=== PATIENT | male | born 1960 | race Caucasian/White ===

== ENCOUNTER 2019-02-18 22:46 | Emergency (ER) | payer MEDICAID, SELFPAY ==
[~2019-02-18] VITALS: Ht 157.5 cm; Wt 90.9 kg
[~2019-02-18 22:46] MED LIST: CYCL10 PO; IBUP-2071 PO
[2019-02-18 23:26] VITALS: BP 143/88
== END 2019-02-19 00:20 | disposition home or self-care (01) ==
LOC: EMS 22:47
DX: R05 Cough (principal); R06.02 Shortness of breath; R06.00 Dyspnea, unspecified; Z77.098 Contact with and (suspected) exposure to other hazardous, chiefly nonmedicinal, chemicals

== ENCOUNTER 2019-08-03 15:54 | Inpatient (IN) | payer MEDICAID ==
[~2019-08-03] VITALS: Ht 157.5 cm; Wt 98.0 kg
[2019-08-03 16:25] LABS: BASOPHILS % (AUTO) 0.8 % (0.0-2.0); EOSINOPHILS % (AUTO) 1.7 % (1.0-6.0); HEMATOCRIT 44.6 % (41-53); HEMOGLOBIN 14.9 g/dL (13.5-17.5); LYMPHOCYTES # (AUTO) 1.9 K/uL (1.0-4.8); LYMPHOCYTES % (AUTO) 22.2 % (22.0-44.0); MEAN CORPUSCULAR HEMOGLOBIN 27.8 pg (26.0-34.0); MEAN CORPUSCULAR HGB CONC 33.3 G/dL (31.0-37.0); MEAN CORPUSCULAR VOLUME 84 fL (80-100); MONOCYTES # (AUTO) 0.6 K/uL (0.1-1.0); MONOCYTES % (AUTO) 6.7 % (2.0-9.0); NEUTROPHILS # (AUTO) 5.7 K/uL (1.8-7.7); NEUTROPHILS % (AUTO) 68.6 % (40.0-70.0); PLATELET COUNT (AUTO) 284 K/uL (150-450); RED BLOOD CELL COUNT(AUTO) 5.34 MIL/uL (4.50-5.90); RED CELL DISTRIBUTION WIDTH 13.4 % (11.5-14.5)
[2019-08-03 16:34] LABS: CREATININE 1.29 mg/dL (0.60-1.30); POTASSIUM 3.8 mmol/L (3.5-5.1)
[2019-08-03 16:40] LABS: BILIRUBIN,TOTAL 0.2 mg/dL (0.1-1.0); TOTAL PROTEIN, SERUM 8.5 g/dL (6.4-8.2)
[2019-08-03 17:30] LABS: APPEARANCE,URINE CLEAR (CLEAR); BILIRUBIN,URINE NEGATIVE (NEGATIVE); GLUCOSE, URINE (UA) NEGATIVE (NEGATIVE); KETONES,URINE NEGATIVE (NEGATIVE); LEUKOCYTE ESTERASE ,URINE SMALL (NEGATIVE); NITRATE,URINE NEGATIVE (NEGATIVE); OCCULT BLOOD,URINE MODERATE (NEGATIVE); PROTEIN,URINE NEGATIVE (NEGATIVE); UROBILINOGEN,URINE 0.2 mg/dL (<=1.0)
[2019-08-03 17:42] LABS: BACTERIA,URINE Few /HPF (None Seen); SQUAMOUS EPITHELIAL CELL,UR Few /LPF (None Seen)
[2019-08-03] MEDS ORDERED: ACETAMINOPHEN 325 MG TABLET PO PRN (20:15)
[2019-08-03] MEDS ORDERED: 0.9% SODIUM CHLORIDE 10 ML SYRINGE IVP PRN (20:15)
[2019-08-03] MEDS ORDERED: ONDANSETRON HCL 4 MG/2 ML VIAL IVP PRN (20:15)
[2019-08-03 21:05] VITALS: BP 131/94
[2019-08-04] VITALS (7 sets, daily range): BP systolic 116–138; BP diastolic 76–89
[2019-08-04 07:52] LABS: BASOPHILS % (AUTO) 0.5 % (0.0-2.0); EOSINOPHILS % (AUTO) 2.8 % (1.0-6.0); HEMATOCRIT 44.3 % (41-53); HEMOGLOBIN 14.9 g/dL (13.5-17.5); LYMPHOCYTES # (AUTO) 1.7 K/uL (1.0-4.8); LYMPHOCYTES % (AUTO) 19.7 % (22.0-44.0); MEAN CORPUSCULAR HEMOGLOBIN 28.2 pg (26.0-34.0); MEAN CORPUSCULAR HGB CONC 33.6 G/dL (31.0-37.0); MEAN CORPUSCULAR VOLUME 84 fL (80-100); MONOCYTES # (AUTO) 0.8 K/uL (0.1-1.0); MONOCYTES % (AUTO) 9.2 % (2.0-9.0); NEUTROPHILS # (AUTO) 5.9 K/uL (1.8-7.7); NEUTROPHILS % (AUTO) 67.8 % (40.0-70.0); PLATELET COUNT (AUTO) 286 K/uL (150-450); RED BLOOD CELL COUNT(AUTO) 5.28 MIL/uL (4.50-5.90); RED CELL DISTRIBUTION WIDTH 13.3 % (11.5-14.5)
[2019-08-04 08:10] LABS: ALANINE AMINOTRANSFERASE 22 U/L (12-78); ALBUMIN 3.5 g/dL (3.4-5.0); ALKALINE PHOSPHATASE 109 U/L (46-116); ANION GAP 9 mmol/L (8-16); ASPARTATE AMINOTRANSFERASE 18 U/L (15-37); BILIRUBIN,TOTAL 0.6 mg/dL (0.1-1.0); CALCIUM, TOTAL 8.4 mg/dL (8.8-10.5); CARBON DIOXIDE 27 mmol/L (22-29); CHLORIDE 104 mmol/L (98-107); CREATININE 1.15 mg/dL (0.60-1.30); GLOMERULAR FILTR. RATE CALC > 60 mL/min (>60); GLUCOSE,RANDOM 96 mg/dL (70-110); POTASSIUM 3.5 mmol/L (3.5-5.1); SODIUM SERUM 140 mmol/L (136-145); TOTAL PROTEIN, SERUM 7.8 g/dL (6.4-8.2)
[2019-08-04 08:15] LABS: UREA NITROGEN, BLOOD 20 mg/dL (7-18)
[2019-08-04] MEDS ORDERED: SODIUM CHLORIDE 0.9% 100 ML ONE (19:34)
[2019-08-04] MEDS ORDERED: IOVERSOL 350 MG/ML 100 ML VIAL ONE (19:34)
[2019-08-05 04:26] VITALS: BP 118/74
[2019-08-05 07:40] VITALS: BP 119/73
[2019-08-05 11:40] VITALS: BP 145/99
[2019-08-05] MEDS ORDERED: ACETAMINOPHEN 325 MG TABLET PO PRN (15:15)
[2019-08-05] MEDS ORDERED: ZOLPIDEM TARTRATE 5 MG TABLET PO PRN (15:15)
[2019-08-05] MEDS ORDERED: MAGNESIUM HYDROXIDE SUSPENSION 30 ML UDCUP PO PRN (15:15)
[2019-08-05] MEDS ORDERED: ALBUTEROL SULFATE 2.5 MG/0.5 ML NEB SOLUTION NEB PRN (15:15)
[2019-08-05] MEDS ORDERED: IPRATROPIUM BROMIDE 0.5 MG/2.5 ML NEB SOLUTION NEB PRN (15:15)
[2019-08-05] MEDS ORDERED: ONDANSETRON HCL 4 MG/2 ML VIAL IVP PRN (15:15)
[2019-08-05] MEDS ORDERED: HYDROCODONE/ACETAMINOPHEN 5-325 MG TABLET PO PRN (15:15)
[2019-08-05] MEDS ORDERED: BISACODYL 10 MG RECTAL RECTAL SUPPOSITORY PR PRN (15:15)
[2019-08-05] MEDS ORDERED: MORPHINE SULFATE 2 MG/ML SYRINGE IVP PRN (15:15)
[2019-08-05 15:45] VITALS: BP 116/69
[2019-08-05] MEDS ORDERED: HEPARIN SODIUM,PORCINE 5,000 UNITS/ML VIAL SQ SCH (16:00)
[2019-08-05] MEDS ORDERED: DOCUSATE SODIUM 100 MG CAPSULE PO SCH (21:00)
== END 2019-08-05 16:00 | disposition home or self-care (01) | DRG 461 ==
LOC: EMS 15:59 → 6N 20:24 → 4E 08-05 04:30
PROVIDERS: ADMIT Hospitalist; ATTEND Hospitalist
DX: C65.2 Malignant neoplasm of left renal pelvis (principal); K42.9 Umbilical hernia without obstruction or gangrene; N13.9 Obstructive and reflux uropathy, unspecified; N20.0 Calculus of kidney; Z87.442 Personal history of urinary calculi; R30.0 Dysuria; Z87.891 Personal history of nicotine dependence; Z90.49 Acquired absence of other specified parts of digestive tract
CPT/HCPCS: 74176; 74178; J7050

== ENCOUNTER 2022-07-31 09:41 | Emergency (ER) | payer MEDICAID, OTHER ==
[~2022-07-31] VITALS: Ht 162.6 cm; Wt 84.0 kg
[2022-07-31 09:51] VITALS: BP 128/82
[2022-07-31] MEDS ORDERED: ERYTHROMYCIN 0.5% 3.5 GM TUBE OPHTHALMIC OINTMENT OD ONE (10:45)
== END 2022-07-31 11:38 | disposition home or self-care (01) ==
LOC: EMS 09:46
DX: H11.31 Conjunctival hemorrhage, right eye (principal); L91.8 Other hypertrophic disorders of the skin; H11.001 Unspecified pterygium of right eye; Z98.890 Other specified postprocedural states
CPT/HCPCS: 11200; 99284; Z7502; Z7610